=== PATIENT | female | born 1995 | race Caucasian/White ===

== ENCOUNTER 2016-12-21 09:40 | Outpatient (CLI) | payer OTHER ==
[2016-12-21 10:23] LABS: eGFR (African) > 60; eGFR (Non-African) > 60
== END 2016-12-21 11:05 ==
LOC: LAB 09:40
PROVIDERS: ATTEND Physician Assistant
DX: R63.1 Polydipsia (principal); R53.83 Other fatigue; R63.5 Abnormal weight gain
CPT/HCPCS: 80053; 83036; 84439; 84443; 84481